=== PATIENT | male | born 1975 | race Two or more races ===

== ENCOUNTER → 2024-09-22 | Outpatient (BNVA) | payer MEDICAID, SELFPAY | END | disposition home or self-care (01) | PROVIDERS: PCP Nurse Practitioner Family; Referring Provider Nurse Practitioner Family; Visit Provider Nurse Practitioner Family | DX: S12.9XXA Fracture of neck, unspecified, initial encounter (principal); F32.1 Major depressive disorder, single episode, moderate; M79.621 Pain in right upper arm; M25.59 Pain in other specified joint | CPT/HCPCS: 99213 ==

== ENCOUNTER → 2024-09-23 | Outpatient (BNVA) | payer MEDICAID, SELFPAY | END | disposition home or self-care (01) | PROVIDERS: PCP Nurse Practitioner Family; Referring Provider Nurse Practitioner Family; Visit Provider Nurse Practitioner Family | DX: Z00.01 Encounter for general adult medical examination with abnormal findings (principal); E66.9 Obesity, unspecified; Z68.30 Body mass index [BMI] 30.0-30.9, adult; E78.5 Hyperlipidemia, unspecified; E55.9 Vitamin D deficiency, unspecified; R73.03 Prediabetes; Z11.3 Encounter for screening for infections with a predominantly sexual mode of transmission; Z12.11 Encounter for screening for malignant neoplasm of colon; Z12.5 Encounter for screening for malignant neoplasm of prostate | CPT/HCPCS: 93005; 99215 ==

== ENCOUNTER 2024-09-27 15:00 | Outpatient (RCR) | payer MEDICAID, SELFPAY ==
--- NOTE | 2024-09-07 17:40 | PT.ODAYNRPT ---
PT Outpatient Daily Note OP Daily Note Outpatient Physical Therapy Treatment Date: 09/07/24 Visit Reasons: Pain in Right shoulder Subjective: High pain level of T/S that radiates up the neck sometimes Objective: See F/S for therex MT: HVT C1-2 rotary and CTJ x5' Assessment: Good response to MT today with improved C/S rotation B Plan: Continue per POC Length of Time (minutes) of Treatment: 30 Minutes Procedure Charges Therapeutic Exercise 30 minutes: Yes
--- NOTE | 2024-09-14 15:55 | PT.ODAYNRPT ---
PT Outpatient Daily Note OP Daily Note Outpatient Physical Therapy Treatment Date: 09/14/24 Visit Reasons: Pain in Right shoulder Subjective: Pt c/o R shoulder pain and mentioned mid and upper back is hurting more today. Objective: Please see flow sheet for ther ex list. Assessment: Interventions performed with pain, pt instructed to perform within tolerable range. Plan: Continue with POC. Length of Time (minutes) of Treatment: 30 Minutes Procedure Charges Therapeutic Exercise 30 minutes: Yes
--- NOTE | 2024-09-21 10:15 | PT.ODAYNRPT ---
PT Outpatient Daily Note OP Daily Note Outpatient Physical Therapy Treatment Date: 09/21/24 Visit Reasons: Pain in Right shoulder Subjective: Pt reports r shoulder is feeling a little better. Objective: Please see flow sheet for ther ex list. Assessment: pt instructed on repeated thoracic extension, verbal cues to avoid excessive flexion during exercise pt complied. Plan: Continue with POC. Length of Time (minutes) of Treatment: 30 Minutes Procedure Charges Therapeutic Exercise 30 minutes: Yes
--- NOTE | 2024-09-27 15:31 | PT.ODAYNRPT ---
PT Outpatient Daily Note OP Daily Note Outpatient Physical Therapy Treatment Date: 09/27/24 Visit Reasons: Pain in Right shoulder Subjective: Pt reports R shoulder and t/s are feeling better. Objective: Please see flow sheet for ther ex list. Assessment: Pt presents in clinic with decrease c/o pain allowing for intervention progression. Plan: Continue with POc. Length of Time (minutes) of Treatment: 30 Minutes Procedure Charges Therapeutic Exercise 30 minutes: Yes
== END 2024-10-01 23:59 | disposition home or self-care (01) ==
LOC: CPTX 15:00
PROVIDERS: PCP Nurse Practitioner Family; Referring Provider Nurse Practitioner Family; Visit Provider Nurse Practitioner Family
DX: M25.511 Pain in right shoulder (principal); M25.521 Pain in right elbow; M54.2 Cervicalgia; M89.8X1 Other specified disorders of bone, shoulder
CPT/HCPCS: 97110

== ENCOUNTER → 2024-10-03 | Outpatient (BNVA) | payer MEDICAID, SELFPAY | END | disposition home or self-care (01) | PROVIDERS: PCP Nurse Practitioner Family; Referring Provider Nurse Practitioner Family; Visit Provider Nurse Practitioner Family | DX: Z71.2 Person consulting for explanation of examination or test findings (principal); E55.9 Vitamin D deficiency, unspecified; E78.5 Hyperlipidemia, unspecified; R73.03 Prediabetes | CPT/HCPCS: 99212; G0463 ==

== ENCOUNTER 2024-10-11 16:30 | Outpatient (RCR) | payer MEDICAID, SELFPAY ==
--- NOTE | 2024-10-05 17:29 | PT.ODAYNRPT ---
PT Outpatient Daily Note OP Daily Note Outpatient Physical Therapy Treatment Date: 10/05/24 Visit Reasons: Pain in Right shoulder Subjective: Less pain of T/S since last visit with me attributed to manual therapy Objective: See F/S for therex MT: HVT C1-2 rotary and CTJ x5' Assessment: Good response to MT today with improved C/S rotation B Plan: Continue per POC Length of Time (minutes) of Treatment: 30 Minutes Procedure Charges Therapeutic Exercise 30 minutes: Yes
--- NOTE | 2024-10-11 17:29 | PT.ODAYNRPT ---
PT Outpatient Daily Note OP Daily Note Outpatient Physical Therapy Treatment Date: 10/11/24 Visit Reasons: Pain in Right shoulder Subjective: Less pain of T/S since last visit with me attributed to manual therapy Objective: See F/S for therex MT: HVT C1-2 rotary and CTJ x5' Assessment: Good response to MT today with improved C/S rotation B Plan: Continue per POC Length of Time (minutes) of Treatment: 30 Minutes Procedure Charges Therapeutic Exercise 30 minutes: Yes
== END 2024-11-01 23:59 | disposition home or self-care (01) ==
LOC: CPTX 16:30
PROVIDERS: PCP Nurse Practitioner Family; Referring Provider Nurse Practitioner Family; Visit Provider Nurse Practitioner Family
DX: M25.511 Pain in right shoulder (principal); M25.521 Pain in right elbow; M54.2 Cervicalgia; M89.8X1 Other specified disorders of bone, shoulder
CPT/HCPCS: 97110

== ENCOUNTER 2024-11-15 14:30 | Outpatient (RCR) | payer MEDICAID, SELFPAY ==
--- NOTE | 2024-11-08 17:23 | PT.ODAYNRPT ---
PT Outpatient Daily Note OP Daily Note Outpatient Physical Therapy Treatment Date: 11/08/24 Visit Reasons: Pain in RT shoulder Subjective: Improved R shoulder ROM Objective: See F/S for therex Assessment: Good response to foam roller for upper back pain relief and improved ROM on pulleys Plan: Reassess Length of Time (minutes) of Treatment: 30 Minutes Procedure Charges Therapeutic Exercise 30 minutes: Yes
--- NOTE | 2024-11-15 15:07 | PT.ODS1RPT ---
PT OP Progress/Discharge Note Date of Service: 11/15/24 Progress Note/DC Note Progress Note/Discharge Note: DC Note Patient Information Visit Reasons: Pain in RT shoulder Service Continue Service or Discharge: Discharge Discharge Date: 11/15/24 Status Subjective: Pt reports he has returned to work and the R shoulder isn't hurting anymore. He is doing work duties without significant pain and he is ready to D/C from therapy. Objective: R shoulder AROM: FF: 160 deg Abd: 148 deg ER: 90 deg Strength: 4/5 in all planes Assessment: Pt has attended 12/12 sessions with very good progress to meet all therapy goals. He has improved AROM of R shoulder to over 145 deg FF and 130 deg abduction and can lift 25 lbs without pain to meet those goals. Plan: D/C with [facility] Procedure Charges Therapeutic Exercise 30 minutes: Yes
== END 2024-12-02 23:59 | disposition home or self-care (01) ==
LOC: CPTX 14:30
PROVIDERS: PCP Nurse Practitioner Family; Referring Provider Nurse Practitioner Family; Visit Provider Nurse Practitioner Family
DX: M25.511 Pain in right shoulder (principal); M25.521 Pain in right elbow; M89.8X1 Other specified disorders of bone, shoulder; M54.2 Cervicalgia
CPT/HCPCS: 97110

== ENCOUNTER → 2025-01-11 | Outpatient (BNVA) | payer MEDICAID, SELFPAY | END | disposition home or self-care (01) | PROVIDERS: PCP Nurse Practitioner Family; Referring Provider Nurse Practitioner Family; Visit Provider Nurse Practitioner Family | DX: Z71.2 Person consulting for explanation of examination or test findings (principal); J30.9 Allergic rhinitis, unspecified; R73.03 Prediabetes; E78.5 Hyperlipidemia, unspecified | CPT/HCPCS: 99212; G0463 ==

== ENCOUNTER → 2025-07-25 | Outpatient (BNVA) | payer MEDICAID, SELFPAY | END | disposition home or self-care (01) | PROVIDERS: PCP Nurse Practitioner Family; Referring Provider Nurse Practitioner Family; Visit Provider Nurse Practitioner Family | DX: Z71.2 Person consulting for explanation of examination or test findings (principal); E78.5 Hyperlipidemia, unspecified; R73.03 Prediabetes; F32.9 Major depressive disorder, single episode, unspecified | CPT/HCPCS: 99213 ==